=== PATIENT | female | born 1955 | race Caucasian/White ===

== ENCOUNTER 2022-12-02 06:09 | Day surgery (SDC) | payer MEDICARE ==
[2022-12-02] MEDS ORDERED: Propofol 200 MG/20 ML SDV IV ONE (06:10)
[2022-12-02] MEDS ORDERED: Lactated Ringers 1,000 ML IV SCH (06:15)
[2022-12-02] MEDS ORDERED: Sodium Chloride 0.9% 10 ML Syringe FLUSH PRN (06:15)
== END 2022-12-02 08:35 | disposition home or self-care (01) ==
LOC: FB.SDS 06:09
PROVIDERS: ATTEND Surgery
DX: Z12.11 Encounter for screening for malignant neoplasm of colon (principal); D12.2 Benign neoplasm of ascending colon; Z80.0 Family history of malignant neoplasm of digestive organs; Z79.899 Other long term (current) drug therapy
CPT/HCPCS: 00812; 88305; J2704; J7120

== ENCOUNTER 2025-08-02 06:58 | Day surgery (SDC) | payer MEDICARE ==
[2025-08-02] MEDS ORDERED: fentaNYL 100 MCG/2 ML SDV IV ONE (06:59)
[2025-08-02] MEDS ORDERED: Midazolam 1 MG/ML 2 ML SDV IV ONE (06:59)
[2025-08-02] MEDS ORDERED: Sodium Chloride 0.9% 10 ML Syringe FLUSH PRN (07:30)
[2025-08-02] MEDS: Lactated Ringers 1,000 ML IV PRN (07:47)
[2025-08-02] MEDS: acetaZOLAMIDE 500 MG Cap.ER PO ONE (09:31)
== END 2025-08-02 09:57 | disposition home or self-care (01) ==
LOC: FB.SDS 06:58
PROVIDERS: ATTEND Ophthalmology
DX: H25.9 Unspecified age-related cataract (principal); H40.1122 Primary open-angle glaucoma, left eye, moderate stage; I10 Essential (primary) hypertension; Z79.899 Other long term (current) drug therapy
CPT/HCPCS: 00142; A9270-GY; J2250; J3010; J7120; V2632

== ENCOUNTER 2025-08-16 06:35 | Day surgery (SDC) | payer MEDICARE ==
[2025-08-16] MEDS ORDERED: Midazolam 1 MG/ML 2 ML SDV IV ONE (06:36)
[2025-08-16] MEDS ORDERED: fentaNYL 100 MCG/2 ML SDV IV ONE (06:36)
[2025-08-16] MEDS ORDERED: Sodium Chloride 0.9% 10 ML Syringe FLUSH PRN (06:45)
[2025-08-16] MEDS ORDERED: Lactated Ringers 1,000 ML IV SCH (06:45)
[2025-08-16] MEDS: acetaZOLAMIDE 500 MG Cap.ER PO ONE (08:58)
== END 2025-08-16 09:06 | disposition home or self-care (01) ==
LOC: FB.SDS 06:35
PROVIDERS: ATTEND Ophthalmology
DX: H25.9 Unspecified age-related cataract (principal); H40.1111 Primary open-angle glaucoma, right eye, mild stage; I10 Essential (primary) hypertension; Z79.899 Other long term (current) drug therapy
CPT/HCPCS: 66991; A9270; J2250; J3010; V2632; 00142